=== PATIENT | male | born 1945 | race Caucasian/White ===

== ENCOUNTER 2016-11-04 18:54 | Emergency (ER) | payer OTHER ==
[~2016-11-04] VITALS: Ht 177.8 cm; Wt 79.2 kg
[2016-11-04 19:00] VITALS: TEMP 36.8; Ht 177.8 cm; Wt 79.2 kg
[2016-11-04] MEDS ORDERED: MISCCAP80 PO (19:07)
[2016-11-04] MEDS ORDERED: CYCL5TAB PO (19:07)
[2016-11-04] MEDS ORDERED: OMEG10007 PO (19:07)
[2016-11-04] MEDS ORDERED: GELATIN SPONGE 12-7MM EXT ONE (19:30)
[2016-11-04] MEDS ORDERED: DIPHTHERIA/TETANUS/PERTUSSIS 0.5 ML SYR/VIAL IM. ONE (19:30)
[2016-11-04] MEDS ORDERED: XYLOCAINE 1%/SOD BICARB 20 ML VIAL INFIL ONE (19:30)
--- NOTE | 2016-11-04 19:37 | EMERGENCY ROOM VISIT NOTE ---
ED Visit Note First contact with patient: 19:15 Chief Complaint: Right thumb Laceration History of Present Illness: This patient is a 71-year-old male who presents to the Emergency Department for evaluation of their right thumb laceration. Patient sustained the laceration while working with a radial arm saw, states he got his finger to close to the blade and cut the tip of his thumb in the saw blade. This occurred at approximately 6:45 PM today. They report a large amount of bleeding initially. They deny any numbness or tingling into the distal extremity. They report no decreased range of motion of the affected digit. They have tried no medications for the pain. Patient rates the pain as throbbing and current discomfort as a 6/10. Patient denies any other injuries. Patient is unsure of his last tetanus, but thinks it may be more than 10 years ago. He does not take any blood thinners. He is right-hand dominant. Medications: Reviewed in chart Allergies: No known drug allergies PMH: No significant past medical history SHx: Lives at home. Denies tobacco, alcohol, recreational drug use. ROS: All pertinent positive and negative review of systems are appropriately documented in the History of Present Illness. Physical Exam: VITAL SIGNS - Vital signs and nursing notes were reviewed. GENERAL -71-year-old male who is well appearing and in no acute distress. Communicates well with provider and answers questions appropriately. SKIN - There is a partial-thickness avulsion of the entire thumb pad on the right hand, no wound edges approximation. No foreign bodies appreciated. Upon further examination there are no deep structures including vessel, tendon, or bony structures appreciated. There is moderate active bleeding noted. MUSCULOSKELETAL - Laceration as described above. + 5/5 strength appreciated of the affected digit. Full range of motion of the affected digit. NEUROLOGIC - sensation of the right thumb fully intact VASCULAR - Capillary refill was brisk. ED Course: Patient was seen and evaluated by myself. Differential diagnosis includes avulsion, laceration, open fracture. X-ray of the right thumb reveals no fractures. Costs and benefits of performing primary wound closure versus no repair were discussed with the patient who verbalizes understanding. Verbal consent was obtained prior to performing the procedure. 2 cc of 1% buffered lidocaine was used to perform a digital block of the right first digit. A finger tourniquet was then applied to the right thumb. The wound was cleansed and prepped in the typical sterile fashion utilizing normal saline and Betadine. The wound was sterilely draped. Once proper anesthetization was established, the wound was further examined and demonstrated findings as above. Wound edges were slightly debrided for clean edges and better wound healing. The wound was copiously irrigated with normal saline and Betadine. The wound dressed with Gelfoam and a pressure dressing, with good hemostasis noted. Patient tolerated the procedure well. No complications were met. A metal splint was applied to the finger for immobilization and comfort. Patient received Boostrix vaccination. Patient educated on worrisome symptoms for return visit to the Emergency Department. Patient discharged to home in good condition. Medication Reconciliation: I attest that I have personally reviewed the patient' s current medication list. Blood pressure screening: The patient was found to have an elevated blood pressure and was referred to their primary doctor for recheck and further treatment. Patient was discussed with Dr. Alcala, who also evaluated the patient and agrees with my assessment and disposition. Current/Historical Medications Scheduled Fish Oil (Empire-3), 1 CAP PO DAILY Probiotic Product (Probiotic), 1 CAP PO DAILY Scheduled PRN Cyclobenzaprine Hcl (Flexeril), 5 MG PO DAILY PRN for Muscle Spasms Vital Signs Date Time Temp Pulse Resp B/P (MAP) Pulse Ox O2 Delivery O2 Flow Rate FiO2 11/04/16 20:58 86 18 148/95 97 Room Air 11/04/16 19:00 36.8 93 18 142/91 97 Room Air Medications Administered Medications (Trade) Dose Ordered Sig/Marina Route Start Time Stop Time Status Last Admin Dose Admin Diphtheria/ Pertussis/Tetanus Vacc (Adacel Inj) 0.5 ml ONCE ONCE IM. 11/04/16 19:30 11/04/16 19:32 DC 11/04/16 20:05 0.5 ML Lidocaine HCl (Buffered Lidocaine 1% Inj) 20 ml ONE ONCE INFIL 11/04/16 19:30 11/04/16 19:32 DC 11/04/16 20:04 20 ML Gelatin (Surgifoam Sponge 12-7MM (SMALL)) 1 ea NOW ONCE EXT 11/04/16 19:30 11/04/16 19:32 DC 11/04/16 20:04 1 EA Departure Information Impression Primary Impression: Avulsion of skin of right thumb without complication Dispostion Home / Self-Care Condition GOOD Referrals No Doctor, Assigned (PCP) Patient Instructions ED Avulsion Dermal, My [facility] Additional Instructions You have been treated in the Emergency Department today for your fingertip Avulsion of your right thumb. Leave the GELFOAM and dressing in place for the next full 48 hours. Keep the dressing clean and dry until time for removal. To remove the GELFOAM dressing, remove the overlying tape and then soak the wound in warm water until the piece of GELFOAM can be easily removed. Proper wound care is essential for adequate wound healing and infection prevention. You can shower and clean the wound with soap and water after removal of the Gelfoam. Do not scour over the wound, pat dry with a towel. You can use an antibiotic ointment with a dressing/bandage over the wound for the next 3-4 days. After this time you may leave the wound dry and open to the air. Look for signs of infection of the wound including: increased pain, swelling, foul discharge, streaking, or increased temperature. If any of these are noticed you should return to the Emergency Department for further assessment and treatment. As with any laceration you may have received nerve damage to the surrounding tissues. This damage could be permanent. For pain control, you can use the following [id number] medicines (if >12 yo): - Regular strength (325mg/tab) Tylenol (acetaminophen) 2 tabs every 4-6 hours as needed. Do not exceed 10 tablets in a 24 hour period. Avoid taking more than 3000 mg of Tylenol per day. This includes any other sources of acetaminophen you may take on a regular basis. - Regular strength (200 mg/tab) Advil (ibuprofen) 1-2 tabs every 4-6 hours as needed. Do not exceed a dose of 2400 mg per day. Follow-up with your PCP in the next few days for recheck of your wound. Return to the emergency department if your symptoms worsen despite treatment course outlined above. Problem Qualifiers Primary Impression: Avulsion of skin of right thumb without complication Encounter type: initial encounter Qualified Codes: S61.001A - Unspecified open wound of right thumb without damage to nail, initial encounter
--- NOTE | 2016-11-04 19:46 | EMERGENCY ROOM VISIT NOTE ---
ED Visit Note First contact with patient: 19:15 Pt seen and evaluated at bedside after discussion with the ASSEMBLY MANAGER. Agree with plan , pt aware of injury and possible complications, anticipated healing process/ scarring, sx to watch/return for. He verbalized understanding, no additional injuries. Pt otherwise well appearing.
--- NOTE | 2016-11-04 20:13 | DIAGNOSTIC IMAGING REPORT ---
RIGHT THUMB 3 VIEWS HISTORY: Right thumb laceration with saw right thumb distal avulsion/amputation, eval fracture Right COMPARISON: None. FINDINGS: There appears to be amputation of the distal soft tissues of the right thumb. No underlying fracture or dislocation. 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 No radiopaque foreign bodies. 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 No underlying fracture or dislocation. Electronically signed by: Uzair Olsen M.D. 11/04/2016 8:12 PM Dictated Date/Time: 11/04/2016 8:08 PM
[2016-11-04 20:58] VITALS: BP 148/95; PULSE 86; O2SAT 97
== END 2016-11-04 21:12 | disposition home or self-care (01) ==
LOC: C.EDB 18:59 → C.EDD 21:12
DX: S61.001A Unspecified open wound of right thumb without damage to nail, initial encounter (principal); W31.2XXA Contact with powered woodworking and forming machines, initial encounter; Z23 Encounter for immunization